=== PATIENT | male | born 1960 | race Hispanic/Latino ===

== ENCOUNTER 2021-02-09 07:14 | Day surgery (SDC) | payer BC ==
[~2021-02-09] VITALS: Ht 165.1 cm; Wt 81.7 kg
[~2021-02-09 07:14] MED LIST: ASPIRIN EC81 MG PO; CELECOXIB200 MG PO; CO Q-1010 MG PO; DOXYCYCLINE HY100 M3 PO; FISH OIL 1,0001 EAC9 PO; FLUTICASONE PRO16 GM NAS; METFORMIN HCL500 MG PO; MUCINEX D ER 61 EACH PO; MULTI-VITAMIN1 EACH PO; NORCO 5-325 TA1 EACH PO; OXYCODONE-ACET1 EAC1 PO; PRAVASTATIN SOD10 MG PO; PRINIVIL20 MG PO
--- NOTE | 2021-02-09 08:51 | NUR ---
02/09/21 0851 [place] PT RECIEVED TO PACU. REPIRATIONS EVEN AND UNLABORED. PASSING GAS.
--- NOTE | 2021-02-09 17:16 | OR ---
[facility] [address], [place] [address] Signed DATE OF OPERATION: 02/09/2021 SURGEON: Paula Worrell MD PREOPERATIVE DIAGNOSES: 1. Positive Cologuard test. 2. Daily aspirin. 3. Daily Celebrex. POSTOPERATIVE DIAGNOSIS: Minimal to moderate internal hemorrhoids. PROCEDURE: Colonoscopy without biopsy. ESTIMATED BLOOD LOSS: None. INDICATIONS: Harlan is a 60-year-old gentleman, asked to see me for his initial colonoscopy. He really has no lower GI complaints. He came with a positive Cologuard test. He said there is no family history of colon cancer or polyps. To his knowledge, he has not seen any black stool or bright red blood per rectum. In the office, I gave him a pamphlet on colonoscopy. He understands the nature of the test. There is risk including, but not limited to gas bloating, crampy abdominal pain, bleeding, perforation requiring surgery, and missed diagnosis. We also reviewed the need for IV conscious sedation. He had expressed understanding and wished to proceed. PROCEDURE NOTE: Despite our preop instructions, Harlan stopped his aspirin 2 days prior to the procedure, and Celebrex 1 day prior to the procedure. He accepted increased risk of bleeding and asked to proceed. He was given a total of 6 mg of Versed and 100 mcg of fentanyl to cover the case. A digital rectal exam was performed and this was unremarkable. He had good sphincter tone. Prostate was a little indurated, but not overly enlarged. The adult colonoscope was introduced and advanced under direct visualization up into the cecum itself. His prep was good. We could easily see the appendiceal orifice and the ileocecal valve. The scope was then slowly withdrawn. We took pictures throughout for photodocumentation. The entire colon and rectum were unremarkable. Upon retroflexion of the scope, he does have moderate internal hemorrhoids. There were two hemorrhoid columns [id number] and I suspect that might bleed from time to time. After this, the Electronically Signed By: PAULA WORRELL MD 02/09/21 1716 PATIENT NAME: HARLAN MILLER OPERATIVE REPORT DATE OF : 60 REPORT #: [id number] PHYSICIAN: PAULA WORRELL MD PCP: REINA OMALLEY MD REPORT IS CONFIDENTIAL AND NOT TO BE RELEASED WITHOUT AUTHORIZATION [facility] [address] [place] [address] [place], [place] [address] Signed gas was suctioned out and colonoscope removed. Harlan tolerated procedure quite well. RECOMMENDATIONS: Harlan can follow up in 10 years for a repeat screening colonoscopy. Paula Worrell MD ALB/MODL /[id number] cc: MD Reina Bui MD Copies: PAULA WORRELL MD, RUSSELL BARR MD ~ Electronically Signed By: PAULA WORRELL MD 02/09/21 1716 PATIENT NAME: HARLAN MILLER OPERATIVE REPORT DATE OF : 60 REPORT #: [id number] PHYSICIAN: PAULA WORRELL MD PCP: REINA OMALLEY MD REPORT IS CONFIDENTIAL AND NOT TO BE RELEASED WITHOUT AUTHORIZATION
== END 2021-02-09 09:56 | disposition home or self-care (01) ==
LOC: OPS 07:14 → DS 07:14 → OPS 07:30 → DS 08:30 → OPS 09:56 → DS 02-16 08:15
PROVIDERS: ATTEND Colon & Rectal Surgery
PROC: 0DJD8ZZ Inspection of Lower Intestinal Tract, Via Natural or Artificial Opening Endoscopic (ICD-10-PCS; principal; 2021-02-09 07:25)
DX: R19.5 Other fecal abnormalities (principal); K64.8 Other hemorrhoids; I10 Essential (primary) hypertension; E11.9 Type 2 diabetes mellitus without complications; Z72.0 Tobacco use; Z96.651 Presence of right artificial knee joint; Z88.8 Allergy status to other drugs, medicaments and biological substances; Z20.822 Contact with and (suspected) exposure to COVID-19
CPT/HCPCS: 99153; G0500; J0690; J2250; J3010; J7121